=== PATIENT | male | born 1970 | race Two or more races ===

== ENCOUNTER 2019-12-03 11:15 | Emergency (ER) | payer MEDICAID ==
[~2019-12-03] VITALS: Ht 175.3 cm; Wt 81.6 kg
[2019-12-03 11:51] VITALS: BP 147/75
[2019-12-03] MEDS ORDERED: KETOROLAC TROMETH 60MG/2ML VIAL IM ONE (12:15)
[2019-12-03 12:39] LABS: Basophils # (auto) 0 10 ^3/uL (0-0.2); Basophils % (auto) 0.5 % (0.0-2.0); Eosinophils # (auto) 0.2 10 ^3/uL (0-0.8); Eosinophils % (auto) 2.5 % (0.0-7.0); Hematocrit 47.2 % (41.0-53.0); Hemoglobin 16.3 g/dL (13.5-17.5); Lymphocytes # (auto) 2.3 10 ^3/uL (0.4-5.4); Lymphocytes % (auto) 33.4 % (10.0-50.0); Mean Corpuscular Hemoglobin 31.1 pg (28.0-32.0); Mean Corpuscular Hgb Conc. 34.6 g/dL (32.0-36.0); Mean Corpuscular Volume 89.9 fL (80.0-100.0); Monocytes # (auto) 0.5 10 ^3/uL (0-1.3); Monocytes % (auto) 6.8 % (0.0-12.0); Neutrophils # (auto) 3.9 10 ^3/uL (1.6-8.6); Neutrophils % (auto) 56.8 % (37.0-80.0); Nucleated Red Blood Cells % 0.2 %; Platelet Count (auto) 229 10^3/uL (140-450); Red Blood Cells 5.25 10^6/uL (4.5-5.90); Red Cell Distribution Width 12.8 % (11.8-14.3); White Blood Cell 6.8 10^3/uL (4.4-10.8)
[2019-12-03 12:43] LABS: Anion Gap 6 (5-15); BUN/Creatinine Ratio 12.8; Blood Urea Nitrogen 15 mg/dL (7-18); Calcium 8.3 mg/dL (8.5-10.1); Carbon Dioxide 26 mmol/L (21-32); Chloride 106 mmol/L (98-107); GFR African American 85 mL/min; GFR Non-African American 70 mL/min; Glucose 140 mg/dL (74-106); Sodium 138 mmol/L (136-145)
== END 2019-12-03 13:15 | disposition home or self-care (01) ==
LOC: ER 11:15
DX: S29.011A Strain of muscle and tendon of front wall of thorax, initial encounter (principal); X58.XXXA Exposure to other specified factors, initial encounter; Y93.89 Activity, other specified; Y92.89 Other specified places as the place of occurrence of the external cause; Y99.8 Other external cause status
CPT/HCPCS: 36415; 71046; 80048; 84484; 85025; 93005; 96372; 99285; J1885

== ENCOUNTER 2020-03-12 10:15 | Inpatient (IN) | payer MEDICAID ==
[~2020-03-12] VITALS: Ht 175.3 cm; Wt 83.5 kg
[2020-03-12 11:15] LABS: Albumin 3.5 g/dL (3.4-5.0); Anion Gap 5 (5-15); Blood Urea Nitrogen 16 mg/dL (7-18); Calcium 8.2 mg/dL (8.5-10.1); Carbon Dioxide 27 mmol/L (21-32); Chloride 105 mmol/L (98-107); Glucose 104 mg/dL (74-106); Potassium 3.6 mmol/L (3.5-5.1); Sodium 137 mmol/L (136-145)
[2020-03-12 11:21] LABS: Alanine Aminotransferase 73 U/L (16-61); Alkaline Phosphatase 49 U/L (45-117); Aspartate Aminotransferase 47 U/L (15-37); BUN/Creatinine Ratio 14.2; Bilirubin, Total 0.8 mg/dL (0.2-1.0); GFR African American 88 mL/min; GFR Non-African American 73 mL/min; Total Protein 7.3 g/dL (6.4-8.2)
[2020-03-12 11:22] LABS: Basophils # (auto) 0 10 ^3/uL (0-0.2); Basophils % (auto) 0.7 % (0.0-2.0); Eosinophils # (auto) 0 10 ^3/uL (0-0.8); Eosinophils % (auto) 0.2 % (0.0-7.0); Hematocrit 46.9 % (41.0-53.0); Lymphocytes # (auto) 1.6 10 ^3/uL (0.4-5.4); Mean Corpuscular Hemoglobin 30.5 pg (28.0-32.0); Mean Corpuscular Hgb Conc. 34.1 g/dL (32.0-36.0); Mean Corpuscular Volume 89.5 fL (80.0-100.0); Monocytes # (auto) 0.4 10 ^3/uL (0-1.3); Monocytes % (auto) 8.9 % (0.0-12.0); Neutrophils # (auto) 2.7 10 ^3/uL (1.6-8.6); Neutrophils % (auto) 57.2 % (37.0-80.0); Nucleated Red Blood Cells % 0.1 %; Platelet Count (auto) 169 10^3/uL (140-450); Red Blood Cells 5.24 10^6/uL (4.5-5.90); Red Cell Distribution Width 13.1 % (11.8-14.3); White Blood Cell 4.8 10^3/uL (4.4-10.8)
[2020-03-12] MEDS ORDERED: SODIUM CHLORIDE 0.9% 1,000 ML IV ONE (12:30)
[2020-03-12] MEDS ORDERED: ONDANSETRON HCL 4 MG/2 ML VIAL IV ONE (12:30)
[2020-03-12] MEDS ORDERED: ACETAMINOPHEN 325 MG TAB PO ONE (12:30)
[2020-03-12] MEDS ORDERED: SODIUM CHLORIDE 0.9% 1,000 ML IVB ONE (13:00)
[2020-03-12 13:10] LABS: Magnesium 2.5 mg/dL (1.6-2.6)
[2020-03-12 13:15] LABS: INR 0.98 (0.9-1.15); Partial Thromboplastin Time 30.8 sec (23.0-31.2)
[2020-03-12] MEDS ORDERED: AZITHROMYCIN 500MG/ 250ML 250 ML IV ONE (15:45)
[2020-03-12] MEDS ORDERED: CIPR500T4 PO (17:05)
[2020-03-12] MEDS ORDERED: IBUP600T27 PO (17:05)
[2020-03-12] MEDS ORDERED: MULT-928 PO (17:05)
[2020-03-12] MEDS ORDERED: NITROGLYCERIN 0.4 MG SL TAB SL PRN ×2 (17:15→23:00)
[2020-03-12] MEDS ORDERED: MORPHINE SULF INJ 2 MG/ML SYRINGE 1ML IV PRN ×3 (17:15→23:00)
[2020-03-12 22:30] VITALS: BP 126/75
[2020-03-12] MEDS ORDERED: LORazepam 0.5 MG TAB PO PRN (23:00)
[2020-03-12] MEDS ORDERED: CALCIUM GLUC 4.65meq/50ml D5AE 50 ML IV ONE (23:00)
[2020-03-12] MEDS ORDERED: HYDROcodone-ACET 5/325MG TAB PO PRN (23:00)
[2020-03-12] MEDS ORDERED: ALUM & MAG HYDROX-SIMETH LIQ(MAALOX) 30 ML PO PRN (23:00)
[2020-03-12] MEDS ORDERED: ACETAMINOPHEN 500 MG TAB PO PRN (23:00)
[2020-03-12] MEDS ORDERED: DOCUSATE SOD 100 MG CAP PO PRN (23:00)
[2020-03-12] MEDS ORDERED: ONDANSETRON HCL 4 MG/2 ML VIAL IV PRN (23:00)
[2020-03-13] MEDS: SOD CHL 0.45% 1,000 ML IV SCH ×2 (00:58→15:40)
[2020-03-13 04:10] LABS: Basophils # (auto) 0 10 ^3/uL (0-0.2); Basophils % (auto) 0.3 % (0.0-2.0); Eosinophils # (auto) 0 10 ^3/uL (0-0.8); Eosinophils % (auto) 0.1 % (0.0-7.0); Hematocrit 45.2 % (41.0-53.0); Hemoglobin 15.3 g/dL (13.5-17.5); Lymphocytes # (auto) 1.7 10 ^3/uL (0.4-5.4); Lymphocytes % (auto) 35.7 % (10.0-50.0); Mean Corpuscular Hemoglobin 30.3 pg (28.0-32.0); Mean Corpuscular Hgb Conc. 33.8 g/dL (32.0-36.0); Mean Corpuscular Volume 89.7 fL (80.0-100.0); Monocytes # (auto) 0.4 10 ^3/uL (0-1.3); Monocytes % (auto) 9.2 % (0.0-12.0); Neutrophils # (auto) 2.5 10 ^3/uL (1.6-8.6); Neutrophils % (auto) 54.7 % (37.0-80.0); Nucleated Red Blood Cells % 0.2 %; Platelet Count (auto) 164 10^3/uL (140-450); Red Blood Cells 5.04 10^6/uL (4.5-5.90); Red Cell Distribution Width 12.9 % (11.8-14.3); White Blood Cell 4.6 10^3/uL (4.4-10.8)
[2020-03-13 04:33] LABS: Albumin 3.2 g/dL (3.4-5.0); Calcium 7.9 mg/dL (8.5-10.1); Magnesium 2.5 mg/dL (1.6-2.6); Potassium 3.3 mmol/L (3.5-5.1)
[2020-03-13 04:41] LABS: Bilirubin, Total 0.7 mg/dL (0.2-1.0); CRP High Sensitivity 3.54 mg/dL (< 0.3); Total Protein 6.6 g/dL (6.4-8.2)
[2020-03-13 04:53] LABS: Cholesterol 121 mg/dL (< 200); HDL Cholesterol 38 mg/dL (40-59); LDL Cholesterol 61 mg/dL (< 100); Triglycerides 170 mg/dL (< 150)
[2020-03-13] MEDS: BUDESONIDE (INHALATION) 180 MCG IH IN SCH ×2 (06:30→22:00)
--- NOTE | 2020-03-13 06:30 | NUR ---
Respiratory note: RECEIVED PT ON RA. NO RESPIRATORY DISTRESS NOTED. WILL CONTINUE TO MONITOR.
[2020-03-13 06:42] LABS: Basophils # (auto) 0 10 ^3/uL (0-0.2); Basophils % (auto) 0.2 % (0.0-2.0); Eosinophils # (auto) 0 10 ^3/uL (0-0.8); Eosinophils % (auto) 0.1 % (0.0-7.0); Hemoglobin 15.6 g/dL (13.5-17.5); Lymphocytes # (auto) 1.5 10 ^3/uL (0.4-5.4); Lymphocytes % (auto) 33.4 % (10.0-50.0); Mean Corpuscular Hemoglobin 30.2 pg (28.0-32.0); Mean Corpuscular Hgb Conc. 33.8 g/dL (32.0-36.0); Mean Corpuscular Volume 89.3 fL (80.0-100.0); Monocytes # (auto) 0.5 10 ^3/uL (0-1.3); Monocytes % (auto) 11.4 % (0.0-12.0); Neutrophils # (auto) 2.5 10 ^3/uL (1.6-8.6); Neutrophils % (auto) 54.9 % (37.0-80.0); Nucleated Red Blood Cells % 0.1 %; Platelet Count (auto) 158 10^3/uL (140-450); Red Blood Cells 5.16 10^6/uL (4.5-5.90); White Blood Cell 4.6 10^3/uL (4.4-10.8)
[2020-03-13 07:15] LABS: Potassium 3.4 mmol/L (3.5-5.1)
[2020-03-13 07:21] LABS: Albumin 3.2 g/dL (3.4-5.0); Bilirubin, Total 0.7 mg/dL (0.2-1.0); Calcium 7.8 mg/dL (8.5-10.1); Total Protein 6.5 g/dL (6.4-8.2)
[2020-03-13 08:15] VITALS: BP 125/72
[2020-03-13 09:00] VITALS: BP 125/72
[2020-03-13] MEDS: CALCIUM W/VIT D (600MG/400IU) TAB PO SCH ×2 (10:02→18:27)
[2020-03-13] MEDS: DexAMETHasone SOD PHOS 10MG/1ML VIAL INJ IV SCH (10:03)
[2020-03-13] MEDS: ZINC SULFATE 220mg CAP or TAB PO SCH (10:08)
[2020-03-13] MEDS: DOXYCYCLINE 100MG/250ML 250 ML IV SCH ×2 (10:08→22:52)
[2020-03-13] MEDS: ASCORBIC ACID 1,000 MG TAB PO SCH (10:09)
[2020-03-13] MEDS: ENOXAPARIN SOD 40 MG/0.4 ML SYRINGE SC SCH ×2 (10:10→22:50)
[2020-03-13] MEDS: CHOLECALCIFEROL (VITD3) 2,000 UNIT CAP PO SCH (10:10)
[2020-03-13] MEDS: ALBUTEROL SULF HFA 90MCG INH 200DOSE IN PRN (10:43)
[2020-03-13 13:00] VITALS: BP_SYST 117; BP_SYST 125; BP_DIAS 71; BP_DIAS 72
--- NOTE | 2020-03-13 13:15 | NUR ---
Doctor Copeland at bedside; No new orders.
--- NOTE | 2020-03-13 15:05 | NUR ---
IV insertion IV access obtained, via clean sterile technique by inserting 20 gauge catheter in right forearm. IV secured properly. No trauma to site. Patient tolerated well.
--- NOTE | 2020-03-13 15:10 | NUR ---
IV removal IV DC'd with clean sterile technique, catheter fully intact. Pressure dressing applied to site. Patient tolerated well.
[2020-03-13 20:30] VITALS: BP 128/64
[2020-03-13 21:39] VITALS: BP 128/64
--- NOTE | 2020-03-14 03:02 | NUR ---
Opening Shift Note Assumed care of patient, awake and alert. No S/S of distress/SOB or pain. Instructed on POC and to call for assist PRN, will continue to monitor for changes Q1hr and PRN.
[2020-03-14 05:07] VITALS: BP 122/78
[2020-03-14 08:00] VITALS: BP 102/70
[2020-03-14] MEDS: SOD CHL 0.45% 1,000 ML IV SCH (08:20)
--- NOTE | 2020-03-14 08:25 | NUR ---
Respiratory note: RECEIVED PT ON 4LNC. RE ASSESSED PT AND OXYGEN SATURATION WAS GOOD. DECREASED PT FLOW TO 2L. NO RESPIRATORY DISTRESS NOTED WILL CONTINUE TO MONITOR
[2020-03-14] MEDS: CALCIUM W/VIT D (600MG/400IU) TAB PO SCH ×2 (08:56→17:28)
[2020-03-14] MEDS: DexAMETHasone SOD PHOS 10MG/1ML VIAL INJ IV SCH (08:57)
[2020-03-14] MEDS: ZINC SULFATE 220mg CAP or TAB PO SCH (08:58)
[2020-03-14] MEDS: DOXYCYCLINE 100MG/250ML 250 ML IV SCH ×2 (08:58→21:36)
[2020-03-14] MEDS: ASCORBIC ACID 1,000 MG TAB PO SCH (08:59)
[2020-03-14] MEDS: ENOXAPARIN SOD 40 MG/0.4 ML SYRINGE SC SCH ×2 (08:59→21:36)
[2020-03-14] MEDS: CHOLECALCIFEROL (VITD3) 2,000 UNIT CAP PO SCH (08:59)
[2020-03-14 09:00] VITALS: BP 102/70
[2020-03-14] MEDS: BUDESONIDE (INHALATION) 180 MCG IH IN SCH ×2 (10:00→18:50)
[2020-03-14] MEDS: ALBUTEROL SULF HFA 90MCG INH 200DOSE IN PRN ×2 (10:29→18:50)
--- NOTE | 2020-03-14 10:56 | NUR ---
Doctor Copeland at bedside; No new orders.
--- NOTE | 2020-03-14 11:10 | NUR ---
New order from Doctor Min acknowledged and read back
[2020-03-14] MEDS ORDERED: POTASSIUM CHL 20 Meq TABLET PO ONE (11:30)
[2020-03-14 13:14] VITALS: BP 107/67
[2020-03-14 16:48] VITALS: BP 123/77
[2020-03-14 21:56] VITALS: BP 109/73
[2020-03-15] MEDS: SOD CHL 0.45% 1,000 ML IV SCH (04:33)
[2020-03-15 05:25] VITALS: BP 107/64
[2020-03-15] MEDS: ALBUTEROL SULF HFA 90MCG INH 200DOSE IN PRN ×2 (06:30→20:40)
[2020-03-15] MEDS: BUDESONIDE (INHALATION) 180 MCG IH IN SCH ×2 (06:30→20:40)
--- NOTE | 2020-03-15 06:51 | NUR ---
END OF SHIFT NOTES WILL ENDORSE CARE TO DAY SHIFT RN, NO S/S OF DISTRESS OR SOB
[2020-03-15 07:25] VITALS: BP 111/71
--- NOTE | 2020-03-15 07:30 | NUR ---
Opening Shift Note RECEIVED REPORT FROM NOC RN. Assumed care of patient, awake and alert. PATIENT ON OXYGEN AT 2 LPM VIA NASAL CANNULA WITH no S/S of distress/SOB or pain. BED IN LOWEST, LOCKED POSITION WITH SIDERAILS UP x2 AND CALL LIGHT WITHIN REACH. Instructed on POC and to call for assist PRN, will continue to monitor for changes Q1hr and PRN.
[2020-03-15] MEDS: CALCIUM W/VIT D (600MG/400IU) TAB PO SCH ×2 (08:25→18:28)
[2020-03-15 09:00] VITALS: BP 111/71
[2020-03-15] MEDS ORDERED: POTASSIUM CHL 20 Meq TABLET PO SCH (10:00)
[2020-03-15] MEDS: DexAMETHasone SOD PHOS 10MG/1ML VIAL INJ IV SCH (10:37)
[2020-03-15] MEDS: ASCORBIC ACID 1,000 MG TAB PO SCH (10:38)
[2020-03-15] MEDS: DOXYCYCLINE 100MG/250ML 250 ML IV SCH ×2 (10:38→21:47)
[2020-03-15] MEDS: CHOLECALCIFEROL (VITD3) 2,000 UNIT CAP PO SCH (10:38)
[2020-03-15] MEDS: ZINC SULFATE 220mg CAP or TAB PO SCH (10:38)
[2020-03-15] MEDS: ENOXAPARIN SOD 40 MG/0.4 ML SYRINGE SC SCH ×2 (10:38→21:47)
--- NOTE | 2020-03-15 11:21 | NUR ---
DR. MCKINLEY AT BEDSIDE.
--- NOTE | 2020-03-15 12:05 | NUR ---
Nutrition Assessment Notes please see attached link for complete assessment Est energy needs BW 85 [id number] kcal (23-25 kcal/kg BW), Est protein needs: 85-93 g (1.0-1.1g/kg BW) Will monitor and reassess prn. Addendum: 03/15/20 at [address] Amended: Links added.
[2020-03-15 13:00] VITALS: BP 108/62
[2020-03-15] MEDS ORDERED: PROMETHAZINE W/CODEINE 5 ML ORAL SYRUP PO PRN (14:00)
[2020-03-15] MEDS ORDERED: REMDESIVIR PER PHARMACY 0 ML IV SCH (14:00)
--- NOTE | 2020-03-15 14:42 | NUR ---
IV removal IV TO RIGHT FOREARM DC'd with clean sterile technique, catheter fully intact. Pressure dressing applied to site. Patient tolerated well.
--- NOTE | 2020-03-15 14:43 | NUR ---
IV insertion IV access obtained, via clean sterile technique by inserting 20 gauge catheter at LEFT FOREARM after 2 attempt(s). IV secured properly. No trauma to site. Patient tolerated well. NOTE: IV INITIATED BY NEL WOMACK.
[2020-03-15 16:00] VITALS: BP 117/69
[2020-03-15] MEDS ORDERED: REMDESIVIR 200 MG in NS 210ml LOADING DOSE ADULT IV ONE (17:00)
--- NOTE | 2020-03-15 18:00 | NUR ---
CALLED PHARMACY ABOUT REMDESIVIR. WAS ADVISED THEY WOULD SEND IT VIA BULLET.
--- NOTE | 2020-03-15 18:28 | NUR ---
REMDESIVIR STARTED 97.9 HR 68 RR 18 O2 97 BP 117/69
[2020-03-15 18:36] LABS: Urine WBC None Seen /hpf (0 - 3)
--- NOTE | 2020-03-15 18:43 | NUR ---
REMDESIVIR 15 MINUTE 97.9 HR 66 RR 18 O2 97 BP 115/67
[2020-03-15 19:16] LABS: Urine Bacteria NONE SEEN /hpf (None Seen); Urine Blood Negative /uL (Negative); Urine Mucus FEW (None Seen); Urine Specific Gravity 1.012 (1.001-1.035)
--- NOTE | 2020-03-15 19:45 | NUR ---
POST REMDESIVIR VITALS T 98.1 HR 7166 RR 18 O2 98% BP 118/65 PATIENT TOLERATED WELL. NO S/S OF INFUSION REACTION NOTED. Addendum: 03/16/20 at 0541 by Sherri Hood RN IV FLUSHED WITH 30ML SALINE POST INFUSION DIRECTED.
[2020-03-15 22:00] VITALS: BP 113/74
[2020-03-16 05:00] VITALS: BP 114/69
[2020-03-16] MEDS: BUDESONIDE (INHALATION) 180 MCG IH IN SCH ×2 (06:43→19:11)
[2020-03-16 07:28] LABS: Hemoglobin 15.3 g/dL (13.5-17.5); Mean Corpuscular Hemoglobin 30.8 pg (28.0-32.0); Mean Corpuscular Hgb Conc. 34.7 g/dL (32.0-36.0); Mean Corpuscular Volume 88.8 fL (80.0-100.0); Platelet Count (auto) 219 10^3/uL (140-450); Red Blood Cells 4.95 10^6/uL (4.5-5.90); Red Cell Distribution Width 13.1 % (11.8-14.3); White Blood Cell 6.7 10^3/uL (4.4-10.8)
[2020-03-16 07:49] LABS: Albumin 3.3 g/dL (3.4-5.0); BUN/Creatinine Ratio 16.5; Bilirubin, Total 0.5 mg/dL (0.2-1.0); Calcium 8.7 mg/dL (8.5-10.1); Total Protein 7.1 g/dL (6.4-8.2)
[2020-03-16 07:59] LABS: Basophils % (manual) 0 (0.0-2.0); Blast Cells 0; Eosinophils % (manual) 0 (0-7); Promyelocytes % 0; Reactive Lymphocytes 0
[2020-03-16 09:00] VITALS: BP 104/68
[2020-03-16 09:47] LABS: Band Neutrophils % (manual) 4; Lymphocytes % (manual) 21 (10.0-50.0); Metamyelocytes % 6; Monocytes % (manual) 11 (0-12); Myelocytes % 2
[2020-03-16] MEDS: CALCIUM W/VIT D (600MG/400IU) TAB PO SCH ×2 (09:50→17:15)
[2020-03-16] MEDS: DexAMETHasone SOD PHOS 10MG/1ML VIAL INJ IV SCH (09:52)
[2020-03-16] MEDS: ASCORBIC ACID 1,000 MG TAB PO SCH (09:54)
[2020-03-16] MEDS: CHOLECALCIFEROL (VITD3) 2,000 UNIT CAP PO SCH (09:54)
[2020-03-16] MEDS: ENOXAPARIN SOD 40 MG/0.4 ML SYRINGE SC SCH ×2 (09:55→21:21)
[2020-03-16] MEDS: ZINC SULFATE 220mg CAP or TAB PO SCH (09:55)
[2020-03-16] MEDS: DOXYCYCLINE 100MG/250ML 250 ML IV SCH (10:36)
[2020-03-16 13:00] VITALS: BP 108/63
[2020-03-16] MEDS: REMDESIVIR 100 MG in SODIUM CHL 0.9% 250 ML IV SCH (15:00)
[2020-03-16 17:00] VITALS: BP 105/62
--- NOTE | 2020-03-16 17:54 | NUR ---
Patient has been AOx4, ambulate to the bathroom with steady gait., but SOB when ambulate. patient denies any chest pain or other pain. had good appetite and ate most of the meals. Remdesivir 100mg/250ml NS started at 1620,Temp 98.0F,BP 105/62, HR 70 RR 22, o2 sat 97% on 2L NC. after 15 minutes, BP 124/67, HR 65,RR 20, o2 sat 97% on 2 L NC. /rendesivir finished at 1730 temp 97.9F, HR 63, BP 111/72, o2 sat. 95% on2L NC. patient did not have any adverse reaction. call light with reach. bed in low position, encouraged patient to call for assistance when getting out of the bed. will continue to monitor patient.
[2020-03-16] MEDS: ALBUTEROL SULF HFA 90MCG INH 200DOSE IN PRN (19:11)
--- NOTE | 2020-03-16 19:12 | NUR ---
PT SEEN AT THIS TIME. ALB 2 PUFFS GIVEN VIA SPACER AND PULM 360 MCG GIVEN WITH NO ADVERSE REACTIONS. PT TOLERATED WELL. HR 68 POX 97 RR 20.
[2020-03-16] MEDS: DOXYCYCLINE 100 MG TAB/CAP PO SCH (21:20)
[2020-03-16 22:00] VITALS: BP 112/71
[2020-03-17 06:00] VITALS: BP 108/71
[2020-03-17] MEDS: ALBUTEROL SULF HFA 90MCG INH 200DOSE IN PRN ×2 (06:43→19:34)
[2020-03-17 08:20] LABS: Potassium 3.9 mmol/L (3.5-5.1)
[2020-03-17] MEDS: CALCIUM W/VIT D (600MG/400IU) TAB PO SCH ×2 (08:25→18:07)
[2020-03-17 08:30] LABS: Albumin 3.2 g/dL (3.4-5.0); BUN/Creatinine Ratio 18.4; Bilirubin, Total 0.5 mg/dL (0.2-1.0)
[2020-03-17 09:00] VITALS: BP 110/69
[2020-03-17] MEDS: DexAMETHasone SOD PHOS 10MG/1ML VIAL INJ IV SCH (09:35)
[2020-03-17] MEDS: ENOXAPARIN SOD 40 MG/0.4 ML SYRINGE SC SCH ×2 (09:35→21:39)
[2020-03-17] MEDS: ZINC SULFATE 220mg CAP or TAB PO SCH (09:35)
[2020-03-17] MEDS: DOXYCYCLINE 100 MG TAB/CAP PO SCH ×2 (09:35→21:38)
[2020-03-17] MEDS: ASCORBIC ACID 1,000 MG TAB PO SCH (09:36)
[2020-03-17] MEDS: CHOLECALCIFEROL (VITD3) 2,000 UNIT CAP PO SCH (09:36)
[2020-03-17 13:00] VITALS: BP 102/52
[2020-03-17] MEDS: REMDESIVIR 100 MG in SODIUM CHL 0.9% 250 ML IV SCH (15:41)
[2020-03-17 17:00] VITALS: BP 106/56
--- NOTE | 2020-03-17 18:51 | NUR ---
Patient has been using incentive spirometer several times today. Encouraged patient to be in prone position. Remdesivir started at 1545, vitals 15 minutes before starting were temp 97.7F, HR 117/76, HR 66, RR 16, O2 Sat 95% on 2L NC.vital signs [id number] Temp 98.1F, HR 67, RR 19, BP 106/56, O2 Sat 95% on 2L NC. finished the infusion at 1700 Temp 98.2F, HR 69, RR 20, BP 122/69, O2 Sat 97% on 2L of NC, patient tolerated the medication well, no adverse reaction.
--- NOTE | 2020-03-17 19:30 | NUR ---
Opening Shift Note Assumed care of patient after receiving report from day RN. Patient is awake and alert with no S/S of distress/SOB or pain. Call light within reach, bed in lowest locked position x2 side rails up for safety. Instructed on POC and to call for assist PRN, will continue to monitor for changes Q1hr and PRN.
[2020-03-17] MEDS: BUDESONIDE (INHALATION) 180 MCG IH IN SCH (19:34)
[2020-03-17 21:00] VITALS: BP 121/68
[2020-03-18] MEDS: BUDESONIDE (INHALATION) 180 MCG IH IN SCH ×2 (07:21→21:08)
[2020-03-18] MEDS: ALBUTEROL SULF HFA 90MCG INH 200DOSE IN PRN (07:21)
--- NOTE | 2020-03-18 07:30 | NUR ---
Opening Shift Note Assumed care of patient, awake and alert. No S/S of distress/SOB or pain. Instructed on POC and calling for assistance PRN, will continue to monitor for changes Q1hr and PRN. Bed in lowest position, top two side rails up, call light within reach.
[2020-03-18 07:35] LABS: Albumin 3.2 g/dL (3.4-5.0); Calcium 8.8 mg/dL (8.5-10.1)
[2020-03-18 07:43] LABS: BUN/Creatinine Ratio 17.9; Bilirubin, Total 0.6 mg/dL (0.2-1.0); Total Protein 6.6 g/dL (6.4-8.2)
[2020-03-18 08:00] VITALS: BP 112/70
[2020-03-18] MEDS: CALCIUM W/VIT D (600MG/400IU) TAB PO SCH ×2 (10:02→18:15)
[2020-03-18] MEDS: ENOXAPARIN SOD 40 MG/0.4 ML SYRINGE SC SCH (10:02)
[2020-03-18] MEDS: ASCORBIC ACID 1,000 MG TAB PO SCH (10:02)
[2020-03-18] MEDS: ZINC SULFATE 220mg CAP or TAB PO SCH (10:02)
[2020-03-18] MEDS: DOXYCYCLINE 100 MG TAB/CAP PO SCH (10:02)
[2020-03-18] MEDS: CHOLECALCIFEROL (VITD3) 2,000 UNIT CAP PO SCH (10:03)
[2020-03-18] MEDS: DexAMETHasone SOD PHOS 10MG/1ML VIAL INJ IV SCH (10:04)
[2020-03-18] MEDS: REMDESIVIR 100 MG in SODIUM CHL 0.9% 250 ML IV SCH (15:19)
[2020-03-18 16:00] VITALS: BP 106/67
--- NOTE | 2020-03-18 17:50 | NUR ---
DISCHARGE DISCHARGE INSTRUCTIONS GIVEN TO PT. PT VERBALIZED UNDERSTANDING, AND ALL QUESTIONS WERE ANSWERED. IV D/C'D IV CATHETER INTACT. TELE BOX REMOVED. PRESCRIPTIONS GIVEN TO PT. PT HAS ALL BELONGINGS. AWAITING RIDE HOME.
--- NOTE | 2020-03-18 19:05 | NUR ---
PT DISCHARGED, PT FAMILY HERE TO PICK HIM UP. PT STABLE AT THIS TIME.
== END 2020-03-18 19:05 | disposition home or self-care (01) | DRG 137 ==
LOC: ER 10:15 → TELE 10:16 → TELE-EAST 22:00
PROVIDERS: ADMIT Hospitalist; ATTEND Internal Medicine
PROC: XW033E5 Introduction of Remdesivir Anti-infective into Peripheral Vein, Percutaneous Approach, New Technology Group 5 (ICD-10-PCS; principal; 2020-03-15)
DX: U07.1 COVID-19 (principal); J12.89 Other viral pneumonia; J96.01 Acute respiratory failure with hypoxia; E83.51 Hypocalcemia; E87.6 Hypokalemia; Z79.82 Long term (current) use of aspirin; G83.24 Monoplegia of upper limb affecting left nondominant side
CPT/HCPCS: 36415; 71045; 74176; 80053; 80061; 81001; 82728; 83036; 83605; 83615; 83690; 83735; 84443; 84484; 85007; 85025; 85027; 85379; 85610; 85730; 86141; 87426; 94640; 96361; 96365; 96366; 96375; G0378; J0610; J1100; J2405; J3490

== ENCOUNTER 2020-12-01 11:41 | Emergency (ER) | payer MEDICAID ==
[~2020-12-01] VITALS: Ht 182.9 cm; Wt 81.6 kg
[~2020-12-01 11:41] MED LIST: CIPR500T4 PO; IBUP600T27 PO; MULT-928 PO
[2020-12-01] MEDS ORDERED: IBUPROFEN 800 MG TAB PO ONE (16:45)
[2020-12-01 17:15] VITALS: BP 128/74
== END 2020-12-01 17:42 | disposition home or self-care (01) ==
LOC: ER 11:41
DX: S63.601A Unspecified sprain of right thumb, initial encounter (principal); Z90.49 Acquired absence of other specified parts of digestive tract; Z79.1 Long term (current) use of non-steroidal anti-inflammatories (NSAID); Z79.899 Other long term (current) drug therapy; W01.0XXA Fall on same level from slipping, tripping and stumbling without subsequent striking against object, initial encounter; Y93.89 Activity, other specified; Y92.89 Other specified places as the place of occurrence of the external cause; Y99.8 Other external cause status
CPT/HCPCS: 29125; 73130

== ENCOUNTER 2021-02-08 10:18 | Emergency (ER) | payer MEDICAID ==
[~2021-02-08] VITALS: Ht 175.3 cm; Wt 87.1 kg
[2021-02-08 11:27] LABS: Basophils # (auto) 0 10 ^3/uL (0-0.2); Basophils % (auto) 0.8 % (0.0-2.0); Eosinophils # (auto) 0.1 10 ^3/uL (0-0.8); Eosinophils % (auto) 2.3 % (0.0-7.0); Hematocrit 46.4 % (41.0-53.0); Hemoglobin 15.6 g/dL (13.5-17.5); Lymphocytes # (auto) 1.6 10 ^3/uL (0.4-5.4); Lymphocytes % (auto) 29.4 % (10.0-50.0); Mean Corpuscular Hemoglobin 30.2 pg (28.0-32.0); Mean Corpuscular Hgb Conc. 33.7 g/dL (32.0-36.0); Mean Corpuscular Volume 89.8 fL (80.0-100.0); Monocytes # (auto) 0.4 10 ^3/uL (0-1.3); Monocytes % (auto) 7.6 % (0.0-12.0); Neutrophils # (auto) 3.2 10 ^3/uL (1.6-8.6); Neutrophils % (auto) 59.9 % (37.0-80.0); Nucleated Red Blood Cells % 0.1 %; Red Blood Cells 5.16 10^6/uL (4.5-5.90); Red Cell Distribution Width 13.6 % (11.8-14.3); White Blood Cell 5.3 10^3/uL (4.4-10.8)
[2021-02-08 11:43] LABS: Albumin 3.8 g/dL (3.4-5.0); Calcium 8.4 mg/dL (8.5-10.1); Potassium 4.1 mmol/L (3.5-5.1)
[2021-02-08 11:46] LABS: BUN/Creatinine Ratio 14.6; Bilirubin, Total 0.7 mg/dL (0.2-1.0); CRP High Sensitivity 0.37 mg/dL (< 0.3); Total Protein 7.3 g/dL (6.4-8.2)
[2021-02-08 14:50] VITALS: BP 128/74
== END 2021-02-08 15:19 | disposition home or self-care (01) ==
LOC: ER 10:18
DX: J18.9 Pneumonia, unspecified organism (principal); R06.02 Shortness of breath; Z90.49 Acquired absence of other specified parts of digestive tract; Z79.2 Long term (current) use of antibiotics; Z79.1 Long term (current) use of non-steroidal anti-inflammatories (NSAID); Z79.899 Other long term (current) drug therapy; Z20.822 Contact with and (suspected) exposure to COVID-19
CPT/HCPCS: 36415; 71045; 80053; 82728; 83880; 85025; 85379; 86141; 87426; 93005

== ENCOUNTER 2022-05-14 10:31 | Emergency (ER) | payer MEDICAID ==
[~2022-05-14] VITALS: Ht 175.3 cm; Wt 78.0 kg
[2022-05-14 11:19] LABS: Hematocrit 49.3 % (41.0-53.0); Hemoglobin 17.3 g/dL (13.5-17.5); Mean Corpuscular Hemoglobin 31.2 pg (28.0-32.0); Mean Corpuscular Volume 89.1 fL (80.0-100.0); Red Blood Cells 5.54 10^6/uL (4.5-5.90); Red Cell Distribution Width 14.1 % (11.8-14.3); White Blood Cell 11.6 10^3/uL (4.4-10.8)
[2022-05-14 11:36] LABS: BUN/Creatinine Ratio 16.7; Calcium 8.3 mg/dL (8.5-10.1); Potassium 4.2 mmol/L (3.5-5.1)
[2022-05-14 11:38] LABS: Basophils % (manual) 0 (0.0-2.0); Blast Cells 0; Eosinophils % (manual) 0 (0-7); Metamyelocytes % 0; Myelocytes % 0; Promyelocytes % 0; Reactive Lymphocytes 0
[2022-05-14 11:39] LABS: Bilirubin, Total 0.9 mg/dL (0.2-1.0); Total Protein 7.1 g/dL (6.4-8.2)
[2022-05-14] MEDS ORDERED: PANTOPRAZOLE 40 MG/10 ML VIAL INJ IV ONE (12:15)
[2022-05-14] MEDS ORDERED: MORPHINE SULFATE 4 MG/ML SYR/VIAL IV ONE (12:15)
[2022-05-14] MEDS ORDERED: ONDANSETRON HCL 4 MG/2 ML VIAL IV ONE (12:15)
[2022-05-14 12:17] LABS: Urine Bacteria NONE SEEN /hpf (None Seen); Urine Blood Negative /uL (Negative); Urine Specific Gravity 1.033 (1.001-1.035); Urine WBC <1 /hpf (0 - 3)
[2022-05-14 13:16] VITALS: BP 116/69
[2022-05-14] MEDS ORDERED: TRAM-297 PO (13:52)
[2022-05-14] MEDS ORDERED: PANT40TA2 PO (13:52)
[2022-05-14] MEDS ORDERED: ONDA-144 PO (13:52)
[2022-05-14 15:50] LABS: Band Neutrophils % (manual) 2; Lymphocytes % (manual) 4 (10.0-50.0); Monocytes % (manual) 4 (0-12)
== END 2022-05-14 14:06 | disposition home or self-care (01) ==
LOC: ER 10:31
DX: R10.84 Generalized abdominal pain (principal); R11.0 Nausea; Z90.49 Acquired absence of other specified parts of digestive tract; Z79.1 Long term (current) use of non-steroidal anti-inflammatories (NSAID); Z79.2 Long term (current) use of antibiotics; Z79.899 Other long term (current) drug therapy
CPT/HCPCS: 36415; 74176; 80053; 81001; 82962; 83690; 85007; 85027; 93005; 96374; 96375; 99285; C9113; J2405

== ENCOUNTER 2023-07-12 16:43 | Emergency (ER) | payer MEDICAID ==
[~2023-07-12] VITALS: Ht 175.3 cm; Wt 85.8 kg
[~2023-07-12 16:43] MED LIST changes: +IBUP-1454 PO; -IBUP600T27 PO; +ONDA-144 PO; +PANT40TA2 PO; +TRAM-297 PO
[2023-07-12 18:26] LABS: Basophils # (auto) 0.1 10 ^3/uL (0-0.2); Eosinophils # (auto) 0.2 10 ^3/uL (0-0.8); Eosinophils % (auto) 2.7 % (0.0-7.0); Hematocrit 48.5 % (41.0-53.0); Hemoglobin 16.3 g/dL (13.5-17.5); Lymphocytes # (auto) 2.2 10 ^3/uL (0.4-5.4); Lymphocytes % (auto) 32.6 % (10.0-50.0); Mean Corpuscular Hemoglobin 30.4 pg (28.0-32.0); Mean Corpuscular Hgb Conc. 33.6 g/dL (32.0-36.0); Mean Corpuscular Volume 90.2 fL (80.0-100.0); Monocytes # (auto) 0.5 10 ^3/uL (0-1.3); Monocytes % (auto) 6.9 % (0.0-12.0); Neutrophils # (auto) 3.9 10 ^3/uL (1.6-8.6); Neutrophils % (auto) 56.8 % (37.0-80.0); Nucleated Red Blood Cells % 0.1 %; Red Blood Cells 5.38 10^6/uL (4.5-5.90); Red Cell Distribution Width 13.6 % (11.8-14.3); White Blood Cell 6.8 10^3/uL (4.4-10.8)
[2023-07-12 18:52] LABS: Alanine Aminotransferase 30 U/L (7-40); Albumin 4.9 g/dL (3.2-4.8); Alkaline Phosphatase 58 U/L (46-116); Anion Gap 6 (5-15); Aspartate Aminotransferase 15 U/L (13-40); BUN/Creatinine Ratio 13.7 (10.0-20.0); Blood Urea Nitrogen 13 mg/dL (9-23); Calcium 9.7 mg/dL (8.7-10.4); Carbon Dioxide 29 mmol/L (20-30); Chloride 103 mmol/L (98-107); Creatine Kinase IFCC 103 U/L (46-171); Glucose 90 mg/dL (74-106); Magnesium 2.4 mg/dL (1.6-2.6); Potassium 4.3 mmol/L (3.5-5.1); Sodium 138 mmol/L (136-145)
[2023-07-12 18:53] LABS: Bilirubin, Total 0.7 mg/dL (0.2-1.0); Total Protein 7.1 g/dL (5.7-8.2)
[2023-07-12] MEDS ORDERED: MECL1TAB42 PO (21:27)
[2023-07-12 21:48] LABS: Urine Bacteria None Seen /hpf (None Seen)
[2023-07-12 22:07] LABS: Urine Blood Negative /uL (Negative); Urine Clarity Clear (Clear); Urine Color Light-Yellow (Yellow); Urine Protein, UAD Negative (Negative); Urine Specific Gravity 1.018 (1.001-1.035); Urine Urobilinogen Normal (Negative); Urine WBC <1 /hpf (0 - 3); Urine pH 5.5 (5.0-9.0)
[2023-07-12 22:13] LABS: Amphetamine Screen, Urine Neg (NEGATIVE); Barbiturate Scree,Urine Neg (NEGATIVE); Benzodiazephine Screen, Urine Neg (NEGATIVE); Cocaine Screen, Urine Neg (NEGATIVE); Opiate Scree,Urine Neg (NEGATIVE)
[2023-07-12 22:14] LABS: Cannabinoid Screen, Urine Neg (NEGATIVE); Phencyclidine Screen, Urine Neg (NEGATIVE)
[2023-07-12] MEDS: MECLIZINE HCL 25 MG TAB PO ONE (23:55)
[2023-07-12] MEDS: SODIUM CHLORIDE 0.9% 1,000 ML IV ONE (23:55)
[2023-07-12 23:56] LABS: Rapid Influenza A Positive (Negative); Rapid Influenza B Positive (Negative)
[2023-07-12 23:57] LABS: COVID19 ANTIGEN SOFIA FIA NEGATIVE (NEGATIVE)
[2023-07-12 23:58] VITALS: BP 119/72; PULSE 68; RESP 19; TEMP 98.6; O2SAT 98
== END 2023-07-13 | disposition home or self-care (01) ==
LOC: ER 16:43
DX: R42 Dizziness and giddiness (principal); Z90.49 Acquired absence of other specified parts of digestive tract; Z79.2 Long term (current) use of antibiotics; Z79.1 Long term (current) use of non-steroidal anti-inflammatories (NSAID); Z79.899 Other long term (current) drug therapy; Z20.822 Contact with and (suspected) exposure to COVID-19
CPT/HCPCS: 36415; 70450; 71045; 80053; 80307; 81001; 82550; 83605; 83735; 84484; 85025; 86308; 87040; 87426; 87804; 93005; 99285; J8597